=== PATIENT | male | born 1975 | race Caucasian/White ===

== ENCOUNTER → 2020-10-30 | Outpatient (CLI) | payer SELFPAY ==
[~2020-10-30] MED LIST: CATHETER FLUSH 10 ML SYR IV PRN; HOLD METFORMIN - RECEIVED CONTRAST 20 ML VIAL IV SCH; IOHEXOL 350 MG/ML 100 ML (OMNIPAQUE 350) VIAL IV ONE; NS 100 ML (IVPB) BAG IV ONE
--- NOTE | 2020-10-30 11:16 | Diagnostic Imaging Report ---
PROCEDURE: CT abdomen with contrast only. TECHNIQUE: Multiple contiguous axial images were obtained through the abdomen after the administration of intravenous contrast. Auto Exposure Controls were utilized during the CT exam to meet ALARA standards for radiation dose reduction. INDICATION: Umbilical hernia. Abdominal pain. COMPARISON: None. FINDINGS: The heart is unremarkable. The lung bases are clear. There is hepatic steatosis. No focal hepatic lesions are seen. The portal vein is patent. The gallbladder is unremarkable. The spleen, pancreas, adrenal glands, and kidneys have a normal appearance. There is no pathologically enlarged mesenteric or retroperitoneal adenopathy. The included bowel loops are nondilated. The appendix is visualized in the right upper quadrant lateral to the liver has a normal appearance. There is no free fluid or free air. No acute osseous abnormalities. Small fat-containing umbilical hernia is seen. No associated inflammatory changes are visualized associated with this hernia. No entrapped loops of bowel. IMPRESSION: 1. No acute inflammatory changes are seen in the abdomen. No bowel obstruction, free fluid, or free air. 2. Small fat-containing umbilical hernia. No associated inflammatory changes or entrapped loops of bowel. 3. Hepatic steatosis. Dictated by: Dictated on workstation # [id number]
== END ==
LOC: RAD FS 09:50
PROVIDERS: ATTEND Physician Assistant Surgical
DX: K42.9 Umbilical hernia without obstruction or gangrene (principal); K76.0 Fatty (change of) liver, not elsewhere classified
CPT/HCPCS: 74160